=== PATIENT | male | born 1945 | race African-American/Black ===

== ENCOUNTER 2017-03-14 16:14 | Emergency (ER) | payer MEDICARE, OTHER ==
[2017-03-14] MEDS ORDERED: ASPIRIN 81 MG TABLET, CHEWABLE PO ONE (17:06)
--- NOTE | 2017-03-14 17:08 | ER Document Report ---
ED Medical Screen (RME) - General Chief Complaint: Chest Pain Stated Complaint: CHEST PAIN Time Seen by Provider: 03/14/17 17:02 Notes: 72-year-old male here with complaints of midsternal nonradiating chest pressure that is somewhat worsened with exertion and breathing. He has also had some shortness of breath and lightheadedness with this. He also complains of some lower abdominal pain that "feels like someone poking me with a sharp knife in my bladder" but he denies any hematuria dysuria. He is unsure if he has ever had a UTI in the past. EXAM Clear to auscultation bilaterally Regular rate and rhythm Mild suprapubic tenderness to palpation TRAVEL OUTSIDE OF THE [place] IN LAST 30 DAYS: No - Related Data Allergies/Adverse Reactions: No Known Allergies Allergy (Unverified 03/14/17 16:16) Physical Exam - Vital signs Vitals: Temp Pulse Resp BP Pulse Ox 98.8 F 74 18 171/70 H 97 03/14/17 16:39 03/14/17 16:39 03/14/17 16:39 03/14/17 16:39 03/14/17 16:39 Course - Vital Signs Vital signs: Temp Pulse Resp BP Pulse Ox 98.8 F 74 18 171/70 H 97 03/14/17 16:39 03/14/17 16:39 03/14/17 16:39 03/14/17 16:39 03/14/17 16:39
[2017-03-14 17:44] LABS: ABSOLUTE BASOPHILS # (AUTO) 0.1 10^3/uL (0.0-0.2); ABSOLUTE EOSINOPHILS # (AUTO) 0.1 10^3/uL (0.0-0.6); ABSOLUTE MONOCYTES (AUTO) 0.7 10^3/uL (0.1-1.4); ABSOLUTE NEUT (AUTO) 5.6 10^3/uL (1.7-8.2); BASOPHILS % (AUTO) 0.7 % (0-2); EOSINOPHILS % (AUTO) 1.4 % (0-6); HEMATOCRIT 43.3 % (37.9-51.0); HEMOGLOBIN 14.6 g/dL (13.5-17.0); HGB HCT DIFFERENCE 0.5; LYMPHOCYTES % (AUTO) 31.7 % (13-45); MEAN CORPUSCULAR HEMOGLOBIN 28.4 pg (27.0-33.4); MEAN CORPUSCULAR HGB CONC 33.6 g/dL (32.0-36.0); MEAN CORPUSCULAR VOLUME 84 fl (80-97); MONOCYTES % (AUTO) 7.8 % (3-13); RED BLOOD COUNT 5.13 10^6/uL (4.35-5.55); RED CELL DISTRIBUTION WIDTH 19.6 % (11.5-14.0); SEGMENTED NEUTROPHILS % (AUTO) 58.4 % (42-78); WHITE BLOOD COUNT 9.6 10^3/uL (4.0-10.5)
--- NOTE | 2017-03-14 17:44 | RADIOLOGY REPORT (SQ) ---
EXAM DESCRIPTION: CHEST PA/LAT COMPLETED DATE/TIME: 03/14/2017 5:37 pm REASON FOR STUDY: CP COMPARISON: None. EXAM PARAMETERS: NUMBER OF VIEWS: two views TECHNIQUE: Digital Frontal and Lateral radiographic views of the chest acquired. RADIATION DOSE: NA LIMITATIONS: none FINDINGS: LUNGS AND PLEURA: There is ill-defined opacification the medial right base that blurs the right heart border. MEDIASTINUM AND HILAR STRUCTURES: No masses or contour abnormalities. HEART AND VASCULAR STRUCTURES: Heart normal size. No evidence for failure. BONES: No acute findings. HARDWARE: None in the chest. OTHER: No other significant finding. IMPRESSION: Cannot exclude a limited right middle lobe pneumonia. TECHNICAL DOCUMENTATION: JOB ID: [id number] [employer]- All Rights Reserved
[2017-03-14 18:32] LABS: APPEARANCE,URINE CLEAR; BILIRUBIN,URINE NEGATIVE (NEGATIVE); GLUCOSE, URINE NEGATIVE (NEGATIVE); KETONES,URINE NEGATIVE (NEGATIVE); LEUKOCYTE ESTERASE,URINE NEGATIVE (NEGATIVE); NITRITE,URINE NEGATIVE (NEGATIVE); PROTEIN,URINE 100 mg/dL (NEGATIVE); URINE SPECIFIC GRAVITY 1.011; UROBILINOGEN,URINE NEGATIVE mg/dL (<2.0)
--- NOTE | 2017-03-14 19:53 | ER Document Report ---
ED Cardiac - General Chief Complaint: Chest Pain Stated Complaint: CHEST PAIN Time Seen by Provider: 03/14/17 17:02 Notes: Patient is a 72-year-old male who presents emergency department complaining of chest pain with onset this morning. Patient states that he woke up with this pain describes it as a constant dull pressure substernal in his left chest. He does admit to intermittent sharp stabbing pains in his left chest that are intermittent lasting less than 5 seconds. Denies any alleviating or aggravating factors. He denies any numbness or tingling in his left arm, neck, jaw pain. He denies any productive cough, fever, shortness of breath, pleurisy , nausea, vomiting, epigastric pain, dyspnea, decreased appetite. Past medical history significant for coronary artery disease with positive stress test in 2000 that resulted in stent placement 1 unsure of vessel. History of hypertension, hyperlipidemia, current smoker denies any history of diabetes. 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 Cleary TRAVEL OUTSIDE OF THE [place] IN LAST 30 DAYS: No - Related Data Allergies/Adverse Reactions: morphine Adverse Reaction (Mild, Verified 03/14/17 17:08) Generalized Itching Past Medical History - Social History Smoking Status: Current Every Day Smoker Chew tobacco use (# tins/day): No Frequency of alcohol use: Occasional Drug Abuse: None Family History: Reviewed & Not Pertinent Patient has suicidal ideation: No Patient has homicidal ideation: No - Past Medical History Cardiac Medical History: Reports: Hx Congestive Heart Failure, Hx Hypertension Renal/ Medical History: Denies: Hx Peritoneal Dialysis Past Surgical History: Reports: Hx Cardiac Catheterization - with stent placement on left, Hx Orthopedic Surgery - back, Hx Vascular Surgery - 4 stents in left leg Review of Systems - Review of Systems Constitutional: No symptoms reported EENT: No symptoms reported Cardiovascular: See HPI Respiratory: See HPI Gastrointestinal: See HPI Neurological/Psychological: No symptoms reported -: Yes All other systems reviewed and negative Physical Exam - Vital signs Vitals: Temp Pulse Resp BP Pulse Ox 98.8 F 74 18 171/70 H 97 03/14/17 16:39 03/14/17 16:39 03/14/17 16:39 03/14/17 16:39 03/14/17 16:39 - Notes Notes: PHYSICAL EXAM GENERAL: Alert, interacts well. HEAD: Normocephalic, atraumatic. EYES: Pupils equal, round, and reactive to light. Extraocular movements intact. ENT: Oral mucosa moist, tongue midline. NECK: Full range of motion. Supple. Trachea midline. No bruit to auscultation bilaterally LUNGS: Clear to auscultation bilaterally, no wheezes, rales, or rhonchi. No respiratory distress. HEART: Regular rate and rhythm. No murmurs, gallops, or rubs. ABDOMEN: Soft, nondistended, nontender. No guarding, rebound, or rigidity.. Bowel sounds present in all 4 quadrants. EXTREMITIES: Moves all 4 extremities spontaneously. No edema, radial and dorsalis pedis pulses 2/4 bilaterally. No cyanosis. NEUROLOGICAL: Alert and oriented x4. Normal speech. PSYCH: Normal affect, normal mood. SKIN: Warm, dry, normal turgor. No rashes or lesions noted. Course - Re-evaluation Re-evalutation: 03/14/17 20:24 Patient is a 72-year-old male who is hemodynamically stable, no acute distress and afebrile. Patient's blood pressure has remained with a systolic of 180 and maps over 100. Patient to receive his home blood pressure medications. He did receive aspirin in triage without significant improvement in his pain. EKG shows evidence of LVH depolarization without ability to compared to previous EKG given patient is new to our facility. No evidence of ST elevations or depressions, Q waves. CBC stable, initial troponin negative. Chest x-ray without evidence of pneumothorax, pneumonia, widened mediastinum. Aortic dissection also seems unlikely given history, symmetric pulses, CXR, and vitals. Heart score of 6 given history, EKG without evidence of ST changes, age , risk factors, negative troponin. 03/14/17 21:43 Patient does admit to moderate relief after nitro but still states that the pressure is present and that he is not pain-free. Patient to be initiated on nitro drip and will reassess pain status at that time. Patient's pressures still remain with maps greater than 100. 03/15/17 00:07 Upon reassessment patient continues to deny any epigastric discomfort, abdomen remains nontender, denies any nausea, burning discomfort. Continually describes constant dull pressure on his chest that is substernal and radiating to the left side of his chest with more improvement in the severity. States it is closer to between a 2 and a 3 that he is not pain free. Discussed with supervising physician Dr. Alberto with concern for underlying ACS without evidence of STEMI or an STEMI given a negative second troponin, patient will be transferred with concerns for unstable angina to [facility]. Patient has been accepted by Dr. Hartley 03/15/17 03:14 Transport has arrived for this patient. Patient states that his chest pressure is still present but tolerable. Resting comfortably on the gurney. Otherwise vital signs are stable. Blood pressure 124/77. - Vital Signs Vital signs: Temp Pulse Resp BP Pulse Ox 99.1 F 74 22 H 124/72 99 03/15/17 03:13 03/14/17 16:39 03/15/17 03:13 03/15/17 03:13 03/15/17 03:13 - Laboratory Result Diagrams: 03/14/17 17:21 03/14/17 19:20 Laboratory results interpreted by me: 03/14/17 03/14/17 03/14/17 17:21 18:11 19:20 RDW 19.6 H AST 15 L Total Protein 6.1 L Urine Protein 100 H Urine Blood SMALL H - Diagnostic Test Radiology reviewed: Image reviewed, Reports reviewed - EKG Interpretation by Me EKG shows normal: Sinus rhythm. abnormal: ST-T Waves Rate: Normal Rhythm: NSR Voltage: Consistant with LVH When compared to previous EKG there are: Previous EKG unavailable Discharge - Discharge Clinical Impression: Chest pain Qualifiers: Chest pain type: chest pain due to myocardial ischemia Ischemic chest pain type : unstable angina pectoris Qualified Code(s): I20.0 - Unstable angina Condition: Stable Disposition: [facility] Referrals: ISRRAEL CLEARY [Primary Care Provider] - Follow up as needed
[2017-03-14 20:01] LABS: ANION GAP 12 (5-19); BLOOD UREA NITROGEN 15 mg/dL (7-20); CALCIUM 9.4 mg/dL (8.4-10.2); CARBON DIOXIDE 25 mmol/L (22-30); CHLORIDE 105 mmol/L (98-107); CREATININE RESULT 1.07 mg/dL (0.52-1.25); GLUCOSE 91 mg/dL (75-110); POTASSIUM 4.1 mmol/L (3.6-5.0); SODIUM 142.4 mmol/L (137-145)
[2017-03-14] MEDS: NITROGLYCERIN 0.4 MG/TAB 25 TAB/BOTTLE SL PRN ×2 (20:04→20:22)
[2017-03-14 20:12] LABS: ALANINE AMINOTRANSFERASE 26 U/L (21-72); ALBUMIN 3.5 g/dL (3.5-5.0); ALKALINE PHOSPHATASE 125 U/L (38-126); ASPARTATE AMINO TRANSFERASE 15 U/L (17-59); BILIRUBIN,DIRECT 0.3 mg/dL (0.0-0.4); BILIRUBIN,TOTAL 0.5 mg/dL (0.2-1.3); TOTAL PROTEIN 6.1 g/dL (6.3-8.2)
[2017-03-14] MEDS ORDERED: CARVEDILOL 12.5 MG TABLET PO ONE (20:24)
[2017-03-14] MEDS ORDERED: NITROGLYCERIN/D5W 50 MG/250 ML RTUINJ IV PRN (21:42)
--- NOTE | 2017-03-14 21:48 | EKG REPORT ---
SEVERITY:- ABNORMAL ECG - SINUS RHYTHM ATRIAL PREMATURE COMPLEX PROBABLE LEFT ATRIAL ABNORMALITY NONSPECIFIC INTRAVENTRICULAR CONDUCTION DELAY LVH WITH SECONDARY REPOLARIZATION ABNORMALITY : Confirmed by: Jazzmine Jonas 14-Mar-2017 21:47:48
--- NOTE | 2017-03-14 21:48 | EKG REPORT ---
SEVERITY:- ABNORMAL ECG - SINUS RHYTHM ATRIAL PREMATURE COMPLEX FIRST DEGREE AV BLOCK PROBABLE LEFT ATRIAL ABNORMALITY LVH WITH SECONDARY REPOLARIZATION ABNORMALITY : Confirmed by: Jazzmine Jonas 14-Mar-2017 21:47:30
[2017-03-14] MEDS ORDERED: HYDROMORPHONE HCL INJ/PF 2 MG/ML AMPULE IV ONE (23:51)
[2017-03-15 03:23] VITALS: BP 124/72
== END 2017-03-15 03:20 | disposition short-term general hospital (02) ==
LOC: ER 16:14
DX: I25.110 Atherosclerotic heart disease of native coronary artery with unstable angina pectoris (principal); F17.200 Nicotine dependence, unspecified, uncomplicated; I10 Essential (primary) hypertension; Z79.899 Other long term (current) drug therapy; Z95.5 Presence of coronary angioplasty implant and graft; Z86.718 Personal history of other venous thrombosis and embolism; Z95.820 Peripheral vascular angioplasty status with implants and grafts
CPT/HCPCS: 93005; 99285; 96375; 96365; 96366; 36415; 85025; 80076; 80048; 81001; 84484; 71020; 93010; A9270 ×2; J1170; J3490

== ENCOUNTER 2017-10-16 21:09 | Emergency (ER) | payer MEDICARE, OTHER ==
[2017-10-16 21:23] VITALS: BP 146/60
--- NOTE | 2017-10-16 22:43 | ER Document Report ---
ED Medical Screen (RME) - General Chief Complaint: Knee Pain Stated Complaint: FALL,KNEE PAIN Time Seen by Provider: 10/16/17 22:42 Mode of Arrival: Wheelchair Information source: Patient Notes: 72-year-old male presents to ED for complaint of left knee pain. He states he went outside to sit she had door when he came back in the kitchen the floor was wet he slipped did a split twisted his left knee. He states he has not taken anything for the pain but his pain has become worse. He is riding in a wheelchair does not bear any weight on this knee. Patella tendon is intact. Pain is mostly to the medial aspect of the knee with minimal swelling. I have greeted and performed a rapid initial assessment of this patient. A comprehensive ED assessment and evaluation of the patient, analysis of test results and completion of medical decision making process will be conducted by an additional ED providers. TRAVEL OUTSIDE OF THE [place] IN LAST 30 DAYS: No - Related Data Allergies/Adverse Reactions: morphine Adverse Reaction (Mild, Verified 03/14/17 17:08) Generalized Itching Past Medical History - Past Medical History Cardiac Medical History: Reports: Hx Congestive Heart Failure, Hx Hypertension Renal/ Medical History: Denies: Hx Peritoneal Dialysis Past Surgical History: Reports: Hx Cardiac Catheterization - with stent placement on left, Hx Orthopedic Surgery - back, Hx Vascular Surgery - 4 stents in left leg Physical Exam - Vital signs Vitals: Temp Pulse Resp BP Pulse Ox 98 F 73 18 146/60 H 98 10/16/17 21:22 10/16/17 21:22 10/16/17 21:22 10/16/17 21:22 10/16/17 21:22 Course - Vital Signs Vital signs: Temp Pulse Resp BP Pulse Ox 98 F 73 18 146/60 H 98 10/16/17 21:22 10/16/17 21:22 10/16/17 21:22 10/16/17 21:22 10/16/17 21:22 Doctor's Discharge - Discharge Referrals: ISRRAEL CLEARY [Primary Care Provider] - Follow up as needed
--- NOTE | 2017-10-16 23:11 | RADIOLOGY REPORT (SQ) ---
EXAM DESCRIPTION: XR KNEE 4 OR MORE VIEWS COMPLETED DATE/TME: 10/16/2017 22:42 CLINICAL HISTORY: 72 years, Male, Failed twisted his knee and has had pain since 3-3 COMPARISON: None. FINDINGS: 4 views of the left knee. No acute fracture or dislocation. Normal osseous mineralization. Small joint effusion. Vascular stent identified in the distal superficial femoral artery. Atherosclerotic vascular calcification. IMPRESSION: 1. No acute fracture or dislocation. 2. Small joint effusion. There is concern for internal derangement MRI could provide additional characterization. 2011 [employer]- All Rights Reserved
--- NOTE | 2017-10-17 00:53 | ER Document Report ---
ED Extremity Problem, Lower - General Chief Complaint: Knee Pain Stated Complaint: FALL,KNEE PAIN Time Seen by Provider: 10/16/17 22:42 Mode of Arrival: Wheelchair Information source: Patient Notes: Patient with complaint of left knee pain after fall. Patient reports that he tripped and fell down 3 steps. Denies striking his head. Recalls all details of event. TRAVEL OUTSIDE OF THE [place] IN LAST 30 DAYS: No - Related Data Allergies/Adverse Reactions: morphine Adverse Reaction (Mild, Verified 03/14/17 17:08) Generalized Itching Past Medical History - General Information source: Patient - Social History Smoking Status: Smoker,Current Status Unk Chew tobacco use (# tins/day): No Frequency of alcohol use: None Drug Abuse: None Family History: Reviewed & Not Pertinent Patient has suicidal ideation: No Patient has homicidal ideation: No - Past Medical History Cardiac Medical History: Reports: Hx Congestive Heart Failure, Hx Hypertension Renal/ Medical History: Denies: Hx Peritoneal Dialysis Past Surgical History: Reports: Hx Cardiac Catheterization - with stent placement on left, Hx Orthopedic Surgery - back, Hx Vascular Surgery - 4 stents in left leg Review of Systems - Review of Systems Constitutional: No symptoms reported EENT: No symptoms reported Cardiovascular: No symptoms reported Respiratory: No symptoms reported Gastrointestinal: No symptoms reported Genitourinary: No symptoms reported Male Genitourinary: No symptoms reported Musculoskeletal: See HPI Skin: No symptoms reported Hematologic/Lymphatic: No symptoms reported Neurological/Psychological: No symptoms reported Physical Exam - Vital signs Vitals: Temp Pulse Resp BP Pulse Ox 98 F 73 18 146/60 H 98 10/16/17 21:22 10/16/17 21:22 10/16/17 21:22 10/16/17 21:22 10/16/17 21:22 - Notes Notes: PHYSICAL EXAMINATION: GENERAL: Well-appearing, well-nourished and in no acute distress. HEAD: Atraumatic, normocephalic. EYES: Pupils equal round and reactive to light, extraocular movements intact, conjunctiva are normal. ENT: Nares patent, oropharynx clear without exudates. Moist mucous membranes. NECK: Normal range of motion, supple without lymphadenopathy LUNGS: Breath sounds clear to auscultation bilaterally and equal. No wheezes rales or rhonchi. HEART: Regular rate and rhythm without murmurs ABDOMEN: Soft, nontender, nondistended abdomen. No guarding, no rebound. No masses appreciated. Female : deferred Musculoskeletal: Limited range of motion to left knee. Mild swelling, no erythema or abrasions. Normal motor and sensation distal to injury. NEUROLOGICAL: Cranial nerves grossly intact. Normal speech. Normal sensory, motor exams PSYCH: Normal mood, normal affect. SKIN: Warm, Dry, normal turgor, no rashes or lesions noted. Course - Re-evaluation Re-evalutation: Left knee xray negative for fracture or dislocation. Small effusion noted and possible internal knee injury. Radiologist recommends MRI correlation. Will place patient in a left knee immobilizer and place on crutches. - Vital Signs Vital signs: Temp Pulse Resp BP Pulse Ox 98 F 73 18 146/60 H 98 10/16/17 21:22 10/16/17 21:22 10/16/17 21:22 10/16/17 21:22 10/16/17 21:22 Procedures - Immobilization left knee Pre-Proc Neuro Vasc Exam: Normal Immobilizer type: Knee immobilizer Performed by: Provider assisted Post-Proc Neuro Vasc Exam: Normal Discharge - Discharge Clinical Impression: Knee injury Qualifiers: Encounter type: initial encounter Laterality: left Qualified Code(s): S89.92XA - Unspecified injury of left lower leg, initial encounter Condition: Stable Disposition: HOME, SELF-CARE Additional Instructions: Suspected Internal Knee Injury The examiner of your injured knee suspects an internal injury to the cartilage or internal ligaments. This must be further investigated by an data collection specialist. The knee should be protected, ice packed, and elevated while awaiting your follow-up exam by the orthopedist. If there is severe swelling, severe pain, or any new symptoms while awaiting your exam, you should call the orthopedist. (If he/she is unavailable, call us or return for re-examination.) Please wear the knee immobilizer until you follow-up with orthopedics. Please take pain medications as prescribed. Please also take Motrin 600 mg every 6 hours for the next few days, this will help reduce inflammation. I am giving you contact info for the local orthopedic group that we work with. They will review your images and decide with the next step will be. You may need an MRI. Prescriptions: Hydrocodone/Acetaminophen [Hydrocodon-Acetaminophen 5-325] 1 each PO Q4 PRN #16 tablet PRN Reason: For Pain Referrals: JEFFY WEBSTER MD [ACTIVE STAFF] - Follow up as needed
[2017-10-17] MEDS ORDERED: HYDROCODONE/ACETAMINOPHEN 5-325 MG (6 TAB/ER DISP) PO PRN (00:54)
== END 2017-10-17 01:14 | disposition home or self-care (01) ==
LOC: ER 21:09
DX: S89.92XA Unspecified injury of left lower leg, initial encounter (principal); W10.9XXA Fall (on) (from) unspecified stairs and steps, initial encounter; I50.9 Heart failure, unspecified; I11.0 Hypertensive heart disease with heart failure; Z88.6 Allergy status to analgesic agent
CPT/HCPCS: 99283; 73564; L1830; A9270

== ENCOUNTER → 2017-12-09 | Outpatient (CLI) | payer MEDICARE, OTHER ==
--- NOTE | 2017-12-09 08:58 | RADIOLOGY REPORT (SQ) ---
EXAM DESCRIPTION: CT ABDOMEN WITH IV ORAL CONT COMPLETED DATE/TIME: 12/09/2017 8:20 am REASON FOR STUDY: R10.11 RIGHT UPPER QUADRANT PAIN R10.11 RIGHT UPPER QUADRANT PAIN COMPARISON: None. TECHNIQUE: CT scan of the abdomen performed with intravenous and with oral contrast using helical sc anning technique with dynamic intravenous contrast injection. Images reviewed with lung, soft tissue, and bone windows. Reconstructed coronal and sagittal MPR images reviewed. Delayed images for evaluat ion of the urinary system also acquired and evaluated. All images stored on PACS. All CT scanners at this facility use dose modulation, iterative reconstruc tion, and/or weight based dosing when appropriate to reduce radiation dose to as low as reasonably ac hievable (ALARA). [facility]: Dose Right [facility]: CareDose [facility]: Dose Right [facility]: Teradose 4D [facility]: Sensity Systems CONTRAST TYPE AND DOSE: contrast/concentration: Isovue 350.00 mg/ml; Total Contrast Delivered: 93.0 ml; Total Saline Delivered: 71.0 ml RENAL FUNCTION: Creatinine 1.2 RADIATION DOSE: CT Rad equipment meets quality standard of care and radiation dose reduction techniq ues were employed. CTDIvol: 10.2 - 12.2 mGy. DLP: 839 mGy-cm. . LIMITATIONS: None. FINDINGS: LOWER CHEST: There is basilar atelectasis. No consolidation or effusions. LIVER: Normal size. No masses. No dilated ducts. SPLEEN: Normal size. No focal lesions. PANCREAS: No masses. No significant calcifications. No adjacent inflammation or peripancreatic fluid collections. Pancreatic duct not dilated. GALLBLADDER: No identified stones by CT criteria. No inflammatory changes to suggest cholecystitis. ADRENAL GLANDS: No significant masses or asymmetry. RIGHT KIDNEY AND URETER: No solid masses. No significant calcifications. No hydronephrosis or hyd roureter. LEFT KIDNEY AND URETER: No solid masses. No significant calcifications. No hydronephrosis or hydr oureter. AORTA AND VESSELS: No aneurysm. No dissection. Renal arteries, SMA, celiac without stenosis. RETROPERITONEUM: No retroperitoneal adenopathy, hemorrhage or masses. BOWEL AND PERITONEAL CAVITY: There is scattered colonic diverticuli. No acute diverticulitis. Colon is largely decompressed. No surrounding inflammation. APPENDIX: Normal. ABDOMINAL WALL: No masses. No hernias. BONES: No significant or acute findings. OTHER: No other significant finding. IMPRESSION: Scattered colonic diverticuli. No acute diverticulitis. No other significant findings. TECHNICAL DOCUMENTATION: JOB ID: [id number] Quality ID # [id number]: Final reports with documentation of one or more dose reduction techniques (e.g., Au tomated exposure control, adjustment of the mA and/or kV according to patient size, use of iterative reconstruction technique) 2010 [employer]- All Rights Reserved Reading location - IP/workstation name: [email or web address]
== END ==
LOC: RAD 07:38
PROVIDERS: ATTEND Family Medicine
DX: R10.11 Right upper quadrant pain (principal)
CPT/HCPCS: 74160; 82565